=== PATIENT | female | born 1935 ===

== ENCOUNTER 2016-10-18 10:23 | Emergency (ER) | payer MEDICARE, OTHER ==
[~2016-10-18] VITALS: Ht 160 cm; Wt 70.0 kg
[2016-10-18 10:30] VITALS: Ht 160 cm; Wt 70.0 kg
--- NOTE | 2016-10-18 11:22 | RADRPT ---
PROCEDURE: Noncontrast CT Head. CLINICAL INDICATION: Dizziness. Confusion. New medication. TECHNIQUE: Noncontrast CT of the head was obtained. The administered radiation dose was CTDI vol = 44.03 mGy, DLP = 720.23 mGy-cm. One or more of the following dose reduction techniques were used: Au tomated exposure control, Adjustment of the mA and/or kV according to patient size, or Use of iterat chacha reconstruction technique. COMPARISON: There are no similar studies submitted for comparison. FINDINGS: There is mild generalized cerebral volume loss. There is mild periventricular hypoattenuation sugges ting chronic microvascular ischemic changes. There are mild vascular calcifications within the int racranial carotid arteries. There is prominent CSF within the superior cerebellar cistern. There is no loss of proctor-white differentiation to suggest acute territorial infarction. There is no acute intracranial hemorrhage. There is no mass effect. No midline shift is identified. The orbits are within normal limits. The paranasal sinuses are well aerated. No destructive osseous lesion is identified. IMPRESSION: 1. No acute intracranial hemorrhage. 2. Mild generalized cerebral volume loss. 3. Mild chronic microvascular ischemic changes. Further findings as detailed above. RPTAT: PP .Keron Foley MD, MD Date Time Electronically viewed and signed by .Keron Foley MD, on 10/18/2016 11:22 .F/
[2016-10-18 11:35] VITALS: BP 177/72; PULSE 73; RESP 16
--- NOTE | 2016-10-18 11:47 | ERD ---
ER Documentation Chief Complaint Date/Time DATE: 10/18/16 TIME: 11:42 Chief Complaint BIB [facility] FOR EVAL OF ROGER. NO TRAUMA. RECENTLY CHANGED B/P MEDS. PT HTN HPI This is an 80-year-old female history of essential hypertension who presents with headache. The patient had a blood pressure medication was recently added. A full time staff interpreter was used however the patient is a poor historian. She thinks the medication was labetalol 300 mg, she took one half tablet 1 week ago and had similar symptoms today. She again took a tablet today and started to feel a headache with palpitations and an anxious sensation. The patient's blood pressure is noted to be in the 200s in an adult daycare center and was sent to the emergency room. She denies any chest pain or pressure and states that the symptoms are dramatically improved and completely resolved upon arrival. ROS All systems reviewed and are negative except as per history of present illness. Allergies Allergies: Coded Allergies: Penicillins (Unverified Allergy, Unknown, 10/18/16) FmHx Family History: No diabetes Physical Exam Vitals Vital Signs Date Time Temp Pulse Resp B/P Pulse Ox O2 Delivery O2 Flow Rate FiO2 10/18/16 11:35 73 16 177/72 Room Air 10/18/16 10:30 98.3 89 19 202/86 97 Physical Exam General: Well developed, well nourished, no acute distress Head: Normocephalic, atraumatic. Eyes: Pupils equally reactive, EOM intact ENT: Moist mucous membranes Neck: Supple, no lymphadenopathy Respiratory: Lungs clear bilaterally, no distress Cardiovascular: RRR, no murmurs, rubs, or gallops Abdominal: Soft, non-tender, non-distended, no peritoneal signs : Deferred MSK: No edema, no unilateral swelling, 5/5 strength Neurologic: Alert and oriented, moving all extremities, normal speech, no focal weakness, no cerebellar signs Skin: No rash Psych: Anxious Procedures/MDM EKG, MONITORS, & DIAGNOSTIC IMAGING: EKG: I reviewed and interpreted a 12-lead EKG. Rhythm: Normal sinus rhythm Ectopy: None Intervals: No abnormalities ST segments: No elevations or depressions T waves: No contiguous inversions CT brain: No acute intracranial process per radiologist MEDICAL DECISION MAKING: Patient's blood pressure was elevated (>120/80) but appears stable without evidence of hypertensive emergency or urgency. The patient was counseled about the risks of hypertension and urged to pursue outpatient monitoring and therapy within a week with their primary care physician. The patient's headache is unlikely related to serious etiology. The patient does not exhibit any clinical signs or symptoms, and has no risk factors to suggest headache etiology such as subarachnoid hemorrhage, acute vertebral or carotid dissection, intracranial mass, epidural, subdural hematoma, dural venous sinus thrombosis, giant cell arteritis, or pseudotumor cerebri. The patient did have a mild headache therefore CT imaging is appropriate of the brain. However that her palpitations do not suggest cardiac ischemia or anginal equivalent. No indication for troponin. The patient's palpitations are likely consistent with anxiety versus adverse drug reaction. ER COURSE: The patient remains asymptomatic and her blood pressure has trended back to normal without intervention. Her CT brain is negative. The patient was advised to discontinue labetalol and discussed this with her primary care physician. Given that this was just initiated and she only had 1-1/2 doses I do not believe that replacement antihypertensive is necessary at this time. I kept the patient and/or family informed of laboratory and diagnostic imaging results throughout the emergency room course. DISPOSITION PLAN: We discussed follow up with the patient's primary care doctor within 24 to 48 hours as needed. We also discussed return to the emergency room for worsening symptoms or worsening condition. Outpatient referral: [None required] Discharge Medications: None required Departure Diagnosis: Primary Impression: Headache Headache type: unspecified Headache chronicity pattern: acute headache Intractability: not intractable Qualified Code: R51 - Acute nonintractable headache, unspecified headache type Additional Impressions: Adverse drug reaction Encounter type: initial encounter Qualified Code: T88.7XXA - Adverse drug reaction, initial encounter Essential hypertension Condition: Good Patient Instructions: Self-Care for Headaches, High Blood Pressure ( Hypertension) Additional Instructions: Llame al doctor MAANA y garo vinh MATTHEW PARA DENTRO DE 2-3 GUEVARA.Dgale a la secretaria que nosotros le instruimos hacer esta matthew.Avise o llame si diane condicin se empeora antes de la matthew. Regresa aqui si peor o no mejor. BONNIE TOSCANO MD Oct 18, 2016 11:47
== END 2016-10-18 11:56 | disposition home or self-care (01) ==
LOC: E/R 10:23
DX: R51 Headache (principal); T44.8X5A Adverse effect of centrally-acting and adrenergic-neuron-blocking agents, initial encounter; I10 Essential (primary) hypertension; R40.2142 Coma scale, eyes open, spontaneous, at arrival to emergency department; R40.2252 Coma scale, best verbal response, oriented, at arrival to emergency department; R40.2362 Coma scale, best motor response, obeys commands, at arrival to emergency department
CPT/HCPCS: 70450; 93005